=== PATIENT | male | born 1950 | race Caucasian/White ===

== ENCOUNTER 2021-12-17 07:03 | Inpatient (IN) ==
[2021-12-17] MEDS ORDERED: ONDANSETRON 4 MG/2 ML VIAL ONE (07:11)
[2021-12-17] MEDS ORDERED: SODIUM CHLORIDE 0.9% 500 ML IV STA (07:30)
[2021-12-17] MEDS ORDERED: PANTOPRAZOLE 40 MG VIAL IV STA (07:30)
[2021-12-17] MEDS ORDERED: PROMETHAZINE 25 MG/1 ML VIAL IM STA (07:31)
[2021-12-17] MEDS ORDERED: ONDANSETRON 4 MG/2 ML VIAL IV STA (07:39)
[2021-12-17 07:49] LABS: Basophils % 0.3 % (0.0-0.8); Hematocrit 30.2 VOL% (42.0-52.0); Hemoglobin 9.7 GM/DL (14.0-18.0); Immature Granulocytes % 0.3 %; Immature Granulocytes Absolute 0.02 #; Lymphocytes # 0.6 10*3/uL (1.4-4.0); Lymphocytes % 7.6 % (21.2-54.2); Mean Corpuscular HGB Conc 32.1 GM/DL (32-36); Mean Corpuscular Volume 98.7 FL (87-102); Mean Platelet Volume 10.9 FL (9.6-12.0); Monocytes % 9.4 % (1.7-12.7); Neutrophils % 82.4 % (38.7-73.9); Platelet Count 132 T/CUMM (130-400); Red Blood Count 3.06 MC/CUMM (3.8-5.5); Red Cell Distribution Width 14.7 % (9.3-17.3); White Blood Count 7.3 T/CUMM (4-12)
[2021-12-17 07:50] LABS: RBC,Urine 3 /HPF (0-4)
[2021-12-17 07:52] LABS: Bilirubin,Total 0.7 MG/DL (0.20-1.00); Calcium 8.2 MG/DL (8.5-10.1); Osmolality,Calculated 265.5 MOS/KG (273-304); Potassium 3.9 MMOL/L (3.5-5.1)
[2021-12-17 07:54] LABS: Bilirubin,Urine Negative (Negative); Blood, Urine Negative (Negative); Glucose,Urine (UA) Negative (Negative); Ketones,Urine 40 mg/dL (Negative); Nitrite,Urine Negative (Negative); Protein,Urine Negative (Negative); Urine Appearance Clear (Clear); Urine Color Yellow (Yellow); Urine Specific Gravity 1.025 (1.001-1.035); Urine Urobilinogen 0.2 eU/dL (<2.0); Urine pH 5.5 (4.5-8.0)
[2021-12-17 08:13] LABS: INR 2.9; Partial Thromboplastin Time 39.3 SECS (23.8-32.1)
[2021-12-17] MEDS ORDERED: THIAMINE INJ 100 MG, FOLIC ACID INJ 1 MG, MAGNESIUM SULF INJ 2 GM, MULTIVITAMIN INJ 10 ... IV ONE (08:39)
[2021-12-17] MEDS ORDERED: NICOTINE 21 MG/24 HR PATCH TRANSDERM PRN (09:04)
[2021-12-17] MEDS ORDERED: GLUCAGON 1 MG VIAL IM PRN (09:04)
[2021-12-17] MEDS ORDERED: DEXTROSE 10% 250 ML BAG IV PRN (09:15)
[2021-12-17] MEDS: PANTOPRAZOLE INJ 200 MG in SODIUM CHLORIDE 0.9% 250 ML IV SCH (10:00)
[2021-12-17] MEDS ORDERED: DILTIAZEM 50 MG/10 ML VIAL IV STA (11:16)
[2021-12-17] MEDS ORDERED: DILTIAZEM 100 MG VIAL.ADD IV ONE (11:20)
[2021-12-17] MEDS ORDERED: DILTIAZEM 50 MG/10 ML VIAL IV ONE (11:20)
[2021-12-17] MEDS: DILTIAZEM INJ 100 MG in SODIUM CHLORIDE 0.9% 100 ML IV SCH (11:35)
[2021-12-17 11:42] LABS: Hematocrit 27.8 VOL% (42.0-52.0); Hemoglobin 9.1 GM/DL (14.0-18.0)
[2021-12-17 11:45] LABS: Free T4 (Free Thyroxine) 1.33 NG/DL (0.76-1.46); Thyroid Stimulating Hormone 3.72 uIU/ml (0.358-3.74)
[2021-12-17] MEDS: chlordiazePOXIDE 25 MG CAPSULE PO SCH ×3 (11:59→23:52)
[2021-12-17 15:23] LABS: Hematocrit 26.1 VOL% (42.0-52.0); Hemoglobin 8.5 GM/DL (14.0-18.0)
[2021-12-17] MEDS ORDERED: DIGOXIN 0.5 MG/2 ML AMP IV ONE (16:34)
[2021-12-17] MEDS ORDERED: POTASSIUM CHLORIDE 20 MEQ TABLET PO STA (16:45)
[2021-12-17] MEDS: DILTIAZEM 30 MG TABLET PO SCH ×2 (17:13→22:43)
[2021-12-17] MEDS: FUROSEMIDE 40 MG/4 ML VIAL IV SCH (17:15)
[2021-12-17] MEDS ORDERED: SODIUM CHLORIDE 0.9% 1,000 ML IV PRN (17:44)
[2021-12-17 20:39] LABS: Hematocrit 32.3 VOL% (42.0-52.0); Hemoglobin 10.4 GM/DL (14.0-18.0)
[2021-12-17] MEDS: ASCORBIC ACID 500 MG TABLET PO SCH (22:45)
[2021-12-18] MEDS: chlordiazePOXIDE 25 MG CAPSULE PO SCH ×3 (04:50→16:31)
[2021-12-18] MEDS: DILTIAZEM 30 MG TABLET PO SCH ×4 (04:50→21:44)
[2021-12-18 06:02] LABS: Basophils % 0.1 % (0.0-0.8); Hematocrit 29.2 VOL% (42.0-52.0); Hemoglobin 9.4 GM/DL (14.0-18.0); Immature Granulocytes % 0.7 %; Immature Granulocytes Absolute 0.05 #; Lymphocytes # 0.5 10*3/uL (1.4-4.0); Lymphocytes % 7.1 % (21.2-54.2); Mean Corpuscular HGB Conc 32.2 GM/DL (32-36); Mean Corpuscular Volume 94.8 FL (87-102); Mean Platelet Volume 11.8 FL (9.6-12.0); Monocytes % 9.8 % (1.7-12.7); Neutrophils % 82.3 % (38.7-73.9); Platelet Count 101 T/CUMM (130-400); Red Blood Count 3.08 MC/CUMM (3.8-5.5); White Blood Count 6.7 T/CUMM (4-12)
[2021-12-18 06:05] LABS: INR 1.6; PT Patient Result 16.9 SECS (10.5-12.0)
[2021-12-18 06:22] LABS: Albumin 2.4 G/DL (3.4-5.0); Bilirubin,Total 1.2 MG/DL (0.20-1.00); Osmolality,Calculated 274.8 MOS/KG (273-304); Potassium 3.1 MMOL/L (3.5-5.1); Total Protein 5.2 G/DL (6.4-8.2)
[2021-12-18 06:38] LABS: Osmolality,Calculated 274.8 MOS/KG (273-304); Potassium 3.1 MMOL/L (3.5-5.1)
[2021-12-18] MEDS ORDERED: DIGOXIN 0.5 MG/2 ML AMP IV ONE (07:35)
[2021-12-18] MEDS ORDERED: LACTATED RINGERS 1,000 ML IV SCH (08:00)
[2021-12-18] MEDS ORDERED: MAGNESIUM SULF RIDER 4 GM/100 ML PREMIX IV PRN (08:28)
[2021-12-18] MEDS ORDERED: POTASSIUM CHLORIDE RIDER 10 MEQ/100 ML PREMIX IV PRN (08:28)
[2021-12-18] MEDS ORDERED: MAGNESIUM SULF RIDER 2 GM/50 ML PREMIX IV PRN (08:28)
[2021-12-18 08:59] LABS: Hematocrit 27.7 VOL% (42.0-52.0); Hemoglobin 8.9 GM/DL (14.0-18.0)
[2021-12-18] MEDS: FUROSEMIDE 40 MG/4 ML VIAL IV SCH ×2 (09:56→16:29)
[2021-12-18] MEDS: ASCORBIC ACID 500 MG TABLET PO SCH ×2 (09:56→21:43)
[2021-12-18] MEDS: PANTOPRAZOLE INJ 200 MG in SODIUM CHLORIDE 0.9% 250 ML IV SCH (10:18)
[2021-12-18] MEDS ORDERED: ETOMIDATE 20 MG/10 ML VIAL IV ONE (11:59)
[2021-12-18] MEDS ORDERED: LIDOCAINE 2% 5 ML VIAL ONE (11:59)
[2021-12-18] MEDS ORDERED: propofoL 200 MG/20 ML VIAL IV ONE (12:17)
[2021-12-18] MEDS: DILTIAZEM INJ 100 MG in SODIUM CHLORIDE 0.9% 100 ML IV SCH (13:42)
[2021-12-18] MEDS: THIAMINE INJ 100 MG, FOLIC ACID INJ 1 MG, MULTIVITAMIN INJ 10 ML in SODIUM CHLORIDE 0.9... IV SCH (14:09)
[2021-12-18] MEDS: POTASSIUM CHLORIDE RIDER 10 MEQ/100 ML PREMIX IV SCH (14:09)
[2021-12-18 14:45] LABS: Hemoglobin 9.3 GM/DL (14.0-18.0)
[2021-12-18 20:32] LABS: Hematocrit 27.4 VOL% (42.0-52.0); Hemoglobin 8.7 GM/DL (14.0-18.0)
[2021-12-19] MEDS: chlordiazePOXIDE 25 MG CAPSULE PO SCH ×3 (01:24→16:59)
[2021-12-19 02:38] LABS: Basophils % 0.8 % (0.0-0.8); Eosinophils % 0.8 % (0.00-10.9); Hematocrit 25.6 VOL% (42.0-52.0); Hemoglobin 8.2 GM/DL (14.0-18.0); Immature Granulocytes % 0.8 %; Immature Granulocytes Absolute 0.03 #; Lymphocytes # 0.6 10*3/uL (1.4-4.0); Lymphocytes % 16.4 % (21.2-54.2); Mean Corpuscular Volume 95.9 FL (87-102); Mean Platelet Volume 11.2 FL (9.6-12.0); Monocytes % 15.1 % (1.7-12.7); Neutrophils % 66.1 % (38.7-73.9); Platelet Count 86 T/CUMM (130-400); Red Blood Count 2.67 MC/CUMM (3.8-5.5); Red Cell Distribution Width 15.9 % (9.3-17.3); White Blood Count 3.7 T/CUMM (4-12)
[2021-12-19 02:51] LABS: INR 1.3; PT Patient Result 14.5 SECS (10.5-12.0)
[2021-12-19 02:56] LABS: Calcium 7.8 MG/DL (8.5-10.1); Potassium 2.6 MMOL/L (3.5-5.1)
[2021-12-19 03:04] LABS: Lymphocytes 17 % (20-55); Platelet Estimate Decreased; Segmented Neutrophils 73 % (50-85); Total Cells Counted 100
[2021-12-19 03:26] LABS: Osmolality,Calculated 277.5 MOS/KG (273-304)
[2021-12-19 08:00] LABS: Hematocrit 26.5 VOL% (42.0-52.0); Hemoglobin 8.4 GM/DL (14.0-18.0)
[2021-12-19] MEDS: POTASSIUM CHLORIDE 20 MEQ TABLET PO SCH ×3 (09:18→17:34)
[2021-12-19] MEDS: ASCORBIC ACID 500 MG TABLET PO SCH ×2 (09:18→20:41)
[2021-12-19] MEDS: SPIRONOLACTONE 25 MG TABLET PO SCH (09:18)
[2021-12-19] MEDS: DILTIAZEM CD 120 MG CAPSULE PO SCH (09:18)
[2021-12-19] MEDS: FUROSEMIDE 40 MG/4 ML VIAL IV SCH ×2 (09:19→16:59)
[2021-12-19] MEDS: THIAMINE INJ 100 MG, FOLIC ACID INJ 1 MG, MULTIVITAMIN INJ 10 ML in SODIUM CHLORIDE 0.9... IV SCH (09:24)
[2021-12-19 13:41] LABS: Ferritin 133.8 ng/mL (26-388)
[2021-12-19] MEDS: DILTIAZEM INJ 100 MG in SODIUM CHLORIDE 0.9% 100 ML IV SCH (14:37)
[2021-12-19] MEDS: PANTOPRAZOLE INJ 200 MG in SODIUM CHLORIDE 0.9% 250 ML IV SCH (14:41)
[2021-12-19] MEDS ORDERED: POTASSIUM CHLORIDE 20 MEQ TABLET PO ONE (17:00)
[2021-12-19] MEDS: PANTOPRAZOLE 40 MG TABLET PO SCH (20:41)
[2021-12-19] MEDS: THIAMINE 100 MG TABLET PO SCH (20:41)
[2021-12-20] MEDS: chlordiazePOXIDE 25 MG CAPSULE PO SCH (01:23)
[2021-12-20 04:58] LABS: Folate 10.22 NG/ML (5.38-24.0)
[2021-12-20 05:02] LABS: Basophils % 0.8 % (0.0-0.8); Eosinophils # 0.1 10*3/uL (0.0-0.87); Eosinophils % 1.6 % (0.00-10.9); Hemoglobin 8.5 GM/DL (14.0-18.0); Immature Granulocytes % 0.5 %; Immature Granulocytes Absolute 0.02 #; Lymphocytes # 0.6 10*3/uL (1.4-4.0); Lymphocytes % 15.7 % (21.2-54.2); Mean Corpuscular HGB Conc 30.4 GM/DL (32-36); Mean Platelet Volume 11.7 FL (9.6-12.0); Monocytes % 17.6 % (1.7-12.7); Neutrophils % 63.8 % (38.7-73.9); Platelet Count 89 T/CUMM (130-400); Red Cell Distribution Width 15.6 % (9.3-17.3); White Blood Count 3.8 T/CUMM (4-12)
[2021-12-20 05:18] LABS: Calcium 8.1 MG/DL (8.5-10.1); Osmolality,Calculated 273.7 MOS/KG (273-304); Potassium 3.5 MMOL/L (3.5-5.1)
[2021-12-20 05:28] LABS: Albumin 2.4 G/DL (3.4-5.0); Bilirubin,Direct 0.26 MG/DL (0.0-0.20); Bilirubin,Indirect 0.7 MG/DL (0.0-1.0); Prealbumin 8.8 MG/DL (20-40); Total Protein 4.8 G/DL (6.4-8.2)
[2021-12-20 05:33] LABS: INR 1.1; PT Patient Result 12.5 SECS (10.5-12.0)
[2021-12-20 05:45] LABS: Eosinophils 3 % (0-10); Hypochromia 1+; Lymphocytes 15 % (20-55); Segmented Neutrophils 69 % (50-85); Total Cells Counted 100
[2021-12-20 05:46] LABS: Microcytosis 1+; Platelet Estimate Decreased
[2021-12-20] MEDS ORDERED: chlordiazePOXIDE 25 MG CAPSULE PO SCH ×3 (08:06→21:00)
[2021-12-20] MEDS: SPIRONOLACTONE 25 MG TABLET PO SCH (08:23)
[2021-12-20] MEDS: FUROSEMIDE 40 MG/4 ML VIAL IV SCH ×2 (08:23→16:11)
[2021-12-20] MEDS: DILTIAZEM CD 120 MG CAPSULE PO SCH (08:24)
[2021-12-20] MEDS: FERROUS SULFATE 325 MG TABLET PO SCH (08:24)
[2021-12-20] MEDS: ASCORBIC ACID 500 MG TABLET PO SCH ×2 (08:25→20:48)
[2021-12-20] MEDS: PANTOPRAZOLE 40 MG TABLET PO SCH ×2 (08:25→20:48)
[2021-12-20] MEDS: FOLIC ACID 1 MG TABLET PO SCH (08:25)
[2021-12-20] MEDS: THIAMINE 100 MG TABLET PO SCH ×2 (08:25→20:48)
[2021-12-20] MEDS ORDERED: POTASSIUM CHLORIDE 20 MEQ TABLET PO ONE (09:57)
[2021-12-20] MEDS ORDERED: FUROSEMIDE 20 MG/2 ML VIAL IV ONE (11:47)
[2021-12-20] MEDS: POTASSIUM CHLORIDE 20 MEQ TABLET PO SCH (20:48)
[2021-12-21 05:57] LABS: Basophils % 0.8 % (0.0-0.8); Eosinophils # 0.1 10*3/uL (0.0-0.87); Eosinophils % 1.3 % (0.00-10.9); Hematocrit 30.1 VOL% (42.0-52.0); Hemoglobin 9.4 GM/DL (14.0-18.0); Immature Granulocytes % 0.4 %; Immature Granulocytes Absolute 0.02 #; Lymphocytes # 1.2 10*3/uL (1.4-4.0); Lymphocytes % 22.7 % (21.2-54.2); Mean Corpuscular HGB Conc 31.2 GM/DL (32-36); Mean Corpuscular Volume 97.7 FL (87-102); Mean Platelet Volume 11.4 FL (9.6-12.0); Monocytes % 20.3 % (1.7-12.7); Neutrophils % 54.5 % (38.7-73.9); Platelet Count 122 T/CUMM (130-400); Red Blood Count 3.08 MC/CUMM (3.8-5.5); Red Cell Distribution Width 15.5 % (9.3-17.3); White Blood Count 5.3 T/CUMM (4-12)
[2021-12-21 06:15] LABS: PT Patient Result 11.5 SECS (10.5-12.0)
[2021-12-21 06:18] LABS: Calcium 8.5 MG/DL (8.5-10.1); Osmolality,Calculated 270.8 MOS/KG (273-304); Potassium 3.2 MMOL/L (3.5-5.1)
[2021-12-21 06:24] LABS: Atypical Lymphocytes Few; Eosinophils 1 % (0-10); Lymphocytes 29 % (20-55); Segmented Neutrophils 55 % (50-85); Total Cells Counted 100
[2021-12-21 06:25] LABS: Hypochromia 1+; Microcytosis 1+; Platelet Estimate Adequate
[2021-12-21] MEDS ORDERED: POTASSIUM CHLORIDE 20 MEQ TABLET PO ONE ×2 (07:35→07:37)
[2021-12-21] MEDS: ASCORBIC ACID 500 MG TABLET PO SCH ×2 (10:03→20:35)
[2021-12-21] MEDS: THIAMINE 100 MG TABLET PO SCH ×2 (10:03→20:35)
[2021-12-21] MEDS: FOLIC ACID 1 MG TABLET PO SCH (10:03)
[2021-12-21] MEDS: DILTIAZEM CD 120 MG CAPSULE PO SCH (10:03)
[2021-12-21] MEDS: PANTOPRAZOLE 40 MG TABLET PO SCH ×2 (10:04→20:35)
[2021-12-21] MEDS: FERROUS SULFATE 325 MG TABLET PO SCH (10:04)
[2021-12-21] MEDS: SPIRONOLACTONE 25 MG TABLET PO SCH (10:04)
[2021-12-21] MEDS: FUROSEMIDE 40 MG/4 ML VIAL IV SCH ×2 (10:07→15:40)
[2021-12-21] MEDS: POTASSIUM CHLORIDE 20 MEQ TABLET PO SCH ×2 (11:13→20:35)
[2021-12-21] MEDS: chlordiazePOXIDE 25 MG CAPSULE PO PRN (15:39)
[2021-12-22 05:24] LABS: Basophils # 0.1 10*3/uL (0.0-0.2); Basophils % 0.9 % (0.0-0.8); Eosinophils # 0.1 10*3/uL (0.0-0.87); Eosinophils % 1.1 % (0.00-10.9); Hematocrit 28.5 VOL% (42.0-52.0); Hemoglobin 9.2 GM/DL (14.0-18.0); Immature Granulocytes % 0.4 %; Immature Granulocytes Absolute 0.02 #; Lymphocytes # 1.1 10*3/uL (1.4-4.0); Mean Corpuscular HGB Conc 32.3 GM/DL (32-36); Mean Corpuscular Volume 96.9 FL (87-102); Mean Platelet Volume 11.6 FL (9.6-12.0); Monocytes % 21.2 % (1.7-12.7); Neutrophils % 56.4 % (38.7-73.9); Platelet Count 134 T/CUMM (130-400); Red Blood Count 2.94 MC/CUMM (3.8-5.5); Red Cell Distribution Width 15.5 % (9.3-17.3); White Blood Count 5.4 T/CUMM (4-12)
[2021-12-22 05:25] LABS: PT Patient Result 11.4 SECS (10.5-12.0)
[2021-12-22 05:35] LABS: Calcium 8.5 MG/DL (8.5-10.1); Osmolality,Calculated 270.8 MOS/KG (273-304)
[2021-12-22 05:53] LABS: Band Neutrophils 1 % (0-10); Hypochromia Slight; Lymphocytes 18 % (20-55); Platelet Estimate Normal; Segmented Neutrophils 64 % (50-85); Total Cells Counted 100
[2021-12-22] MEDS ORDERED: POTASSIUM CHLORIDE 20 MEQ TABLET PO SCH (08:30)
[2021-12-22] MEDS ORDERED: FUROSEMIDE 40 MG/4 ML VIAL IV SCH (09:00)
[2021-12-22] MEDS: ASCORBIC ACID 500 MG TABLET PO SCH ×2 (09:49→20:20)
[2021-12-22] MEDS: FERROUS SULFATE 325 MG TABLET PO SCH (09:49)
[2021-12-22] MEDS: PANTOPRAZOLE 40 MG TABLET PO SCH ×2 (09:49→20:20)
[2021-12-22] MEDS: THIAMINE 100 MG TABLET PO SCH ×2 (09:49→20:20)
[2021-12-22] MEDS: DILTIAZEM CD 120 MG CAPSULE PO SCH (09:50)
[2021-12-22] MEDS: SPIRONOLACTONE 25 MG TABLET PO SCH (09:50)
[2021-12-22] MEDS: FOLIC ACID 1 MG TABLET PO SCH (09:51)
[2021-12-22] MEDS: FUROSEMIDE 40 MG/4 ML VIAL IV SCH (10:29)
[2021-12-22] MEDS: POTASSIUM BICARB EFFERVESCENT 20 MEQ TAB.EFF PO SCH ×3 (10:47→14:43)
[2021-12-22] MEDS: chlordiazePOXIDE 25 MG CAPSULE PO PRN (10:47)
[2021-12-23 04:59] LABS: Basophils # 0.1 10*3/uL (0.0-0.2); Basophils % 0.8 % (0.0-0.8); Eosinophils # 0.1 10*3/uL (0.0-0.87); Hematocrit 31.2 VOL% (42.0-52.0); Hemoglobin 9.7 GM/DL (14.0-18.0); Immature Granulocytes % 0.7 %; Immature Granulocytes Absolute 0.04 #; Lymphocytes # 1.3 10*3/uL (1.4-4.0); Lymphocytes % 20.8 % (21.2-54.2); Mean Corpuscular HGB Conc 31.1 GM/DL (32-36); Mean Corpuscular Volume 98.4 FL (87-102); Mean Platelet Volume 11.5 FL (9.6-12.0); Monocytes % 21.8 % (1.7-12.7); Neutrophils % 54.9 % (38.7-73.9); Platelet Count 163 T/CUMM (130-400); Red Blood Count 3.17 MC/CUMM (3.8-5.5); Red Cell Distribution Width 15.2 % (9.3-17.3); White Blood Count 6.2 T/CUMM (4-12)
[2021-12-23 05:22] LABS: Calcium 8.9 MG/DL (8.5-10.1); Potassium 3.9 MMOL/L (3.5-5.1)
[2021-12-23 05:23] LABS: Atypical Lymphocytes Few; Band Neutrophils 5 % (0-10); Eosinophils 2 % (0-10); Lymphocytes 23 % (20-55); Platelet Estimate Normal; Segmented Neutrophils 55 % (50-85); Total Cells Counted 100
[2021-12-23 05:24] LABS: Anisocytosis Slight; Macrocytosis Slight
[2021-12-23] MEDS: DILTIAZEM CD 120 MG CAPSULE PO SCH (09:17)
[2021-12-23] MEDS: FUROSEMIDE 40 MG TABLET PO SCH (09:17)
[2021-12-23] MEDS: THIAMINE 100 MG TABLET PO SCH ×2 (09:17→20:44)
[2021-12-23] MEDS: ASCORBIC ACID 500 MG TABLET PO SCH ×2 (09:17→20:44)
[2021-12-23] MEDS: POTASSIUM CHLORIDE 20 MEQ TABLET PO SCH ×2 (09:17→20:43)
[2021-12-23] MEDS: FERROUS SULFATE 325 MG TABLET PO SCH (09:17)
[2021-12-23] MEDS: FOLIC ACID 1 MG TABLET PO SCH (09:17)
[2021-12-23] MEDS: SPIRONOLACTONE 25 MG TABLET PO SCH (09:18)
[2021-12-23] MEDS: PANTOPRAZOLE 40 MG TABLET PO SCH ×2 (09:18→20:44)
[2021-12-24 06:59] LABS: Basophils # 0.1 10*3/uL (0.0-0.2); Basophils % 0.9 % (0.0-0.8); Eosinophils # 0.1 10*3/uL (0.0-0.87); Eosinophils % 1.6 % (0.00-10.9); Hematocrit 31.6 VOL% (42.0-52.0); Immature Granulocytes % 1.1 %; Immature Granulocytes Absolute 0.06 #; Lymphocytes # 1.2 10*3/uL (1.4-4.0); Lymphocytes % 21.7 % (21.2-54.2); Mean Corpuscular HGB Conc 31.6 GM/DL (32-36); Mean Corpuscular Volume 96.9 FL (87-102); Mean Platelet Volume 11.5 FL (9.6-12.0); Monocytes % 20.4 % (1.7-12.7); Neutrophils % 54.3 % (38.7-73.9); Platelet Count 192 T/CUMM (130-400); Red Blood Count 3.26 MC/CUMM (3.8-5.5); Red Cell Distribution Width 15.2 % (9.3-17.3); White Blood Count 5.5 T/CUMM (4-12)
[2021-12-24 07:07] LABS: PT Patient Result 10.8 SECS (10.5-12.0)
[2021-12-24 07:21] LABS: Osmolality,Calculated 268.1 MOS/KG (273-304); Potassium 4.2 MMOL/L (3.5-5.1)
[2021-12-24 07:27] LABS: Eosinophils 2 % (0-10); Hypochromia Slight; Lymphocytes 22 % (20-55); Microcytosis Slight; Platelet Estimate Adequate; Segmented Neutrophils 60 % (50-85); Total Cells Counted 100
[2021-12-24] MEDS: FERROUS SULFATE 325 MG TABLET PO SCH (08:43)
[2021-12-24] MEDS: PANTOPRAZOLE 40 MG TABLET PO SCH (08:44)
[2021-12-24] MEDS: SPIRONOLACTONE 25 MG TABLET PO SCH (08:44)
[2021-12-24] MEDS: FUROSEMIDE 40 MG TABLET PO SCH (08:44)
[2021-12-24] MEDS: DILTIAZEM CD 120 MG CAPSULE PO SCH (08:44)
[2021-12-24] MEDS: POTASSIUM CHLORIDE 20 MEQ TABLET PO SCH (08:44)
[2021-12-24] MEDS: ASCORBIC ACID 500 MG TABLET PO SCH (08:45)
[2021-12-24] MEDS: THIAMINE 100 MG TABLET PO SCH (08:45)
[2021-12-24] MEDS: FOLIC ACID 1 MG TABLET PO SCH (08:49)
[2021-12-24 12:13] VITALS: BP 106/52
== END 2021-12-24 14:45 | disposition swing bed (61) | DRG 380 ==
LOC: EDBD → EDUNIT# → N.ED 07:03 → N.EDINP 09:06 → SUATTDRO 09:06 → N.TELES 18:22
PROVIDERS: ADMIT Family Medicine; ATTEND Emergency Medicine